=== PATIENT | female | born 1990 | race Two or more races ===

== ENCOUNTER 2024-03-20 22:05 | Emergency (ER) | payer OTHER ==
[~2024-03-20] VITALS: Ht 177.8 cm; Wt 111.1 kg
[2024-03-20 23:11] VITALS: BP 137/98; TEMP 98.3; O2SAT 99
== END 2024-03-21 01:08 | disposition home or self-care (01) ==
LOC: ER 22:11
DX: J06.9 Acute upper respiratory infection, unspecified (principal); Z20.822 Contact with and (suspected) exposure to COVID-19
CPT/HCPCS: 86403-TC; 87070-TC

== ENCOUNTER 2024-04-01 14:04 | Emergency (ER) | payer OTHER ==
[~2024-04-01] VITALS: Ht 177.8 cm; Wt 109.8 kg
[2024-04-01 15:45] VITALS: BP 129/78; TEMP 98.4; O2SAT 99
== END 2024-04-01 17:18 | disposition left against medical advice (07) ==
LOC: ER 14:24
DX: R05.9 Cough, unspecified (principal); Z53.21 Procedure and treatment not carried out due to patient leaving prior to being seen by health care provider